=== PATIENT | male | born 1940 | race Caucasian/White ===

== ENCOUNTER 2017-04-02 09:20 | Emergency (ER) | payer OTHER ==
[~2017-04-02] VITALS: Ht 185.4 cm; Wt 111.2 kg
[2017-04-02] MEDS ORDERED: SODIUM CHLORIDE 0.9% 1,000 ML IV ONE (09:40)
[2017-04-02 09:54] LABS: HEMATOCRIT 49.2 % (39.2-51.8); HEMOGLOBIN 16.4 g/dL (13.7-18.0); WHITE BLOOD COUNT 10.4 x10^3/uL (3.4-10)
[2017-04-02] MEDS ORDERED: SODIUM CHLORIDE 0.9% 1,000ML IVBOLUS ONE (10:00)
[2017-04-02] MEDS ORDERED: FAMOTIDINE 20 MG/2 ML IVP ONE (10:00)
[2017-04-02] MEDS ORDERED: ONDANSETRON 2MG/ML, 2ML IVPush ONE (10:00)
[2017-04-02] MEDS ORDERED: HYDROmorphone 1 MG/ML, 1ML ONE ×3 (10:05→15:08)
[2017-04-02] MEDS ORDERED: ONDANSETRON 2MG/ML, 2ML ONE (10:05)
[2017-04-02] MEDS ORDERED: FAMOTIDINE 20 MG/2 ML ONE (10:05)
[2017-04-02 10:06] LABS: ASPARTATE AMINO TRANSFERASE 29 U/L (15-37); BLOOD UREA NITROGEN 19 mg/dL (7-18)
[2017-04-02] MEDS: HYDROmorphone 1 MG/ML, 1ML IVPush PRN ×2 (10:18→11:22)
[2017-04-02] MEDS ORDERED: OMNIPAQUE 350 MG/ML, 100ML BOTTLE ONE (11:08)
[2017-04-02] MEDS ORDERED: KETOROLAC 30 MG/1 ML IVPush ONE (12:00)
[2017-04-02] MEDS ORDERED: KETOROLAC 30 MG/1 ML ONE (12:23)
[2017-04-02 14:36] LABS: PATH.CAST-FLAG NOT PRESENT; SPERM-FLAG NOT PRESENT; SRC-FLAG NOT PRESENT; XTAL-FLAG NOT PRESENT; YLC-FLAG NOT PRESENT
[2017-04-02 15:02] VITALS: BP 151/74
== END 2017-04-02 15:06 | disposition home or self-care (01) ==
LOC: ED 11:28
DX: N20.1 Calculus of ureter (principal); N13.2 Hydronephrosis with renal and ureteral calculous obstruction; I10 Essential (primary) hypertension; F32.9 Major depressive disorder, single episode, unspecified
CPT/HCPCS: 36415; 74177; 80053; 81001; 83690; 85025; 96361; 96374; 96375; 96376; 99285; J1170; J1885; J2405; J7030; Q9967; S0028

== ENCOUNTER → 2018-02-11 | Outpatient (CLI) | payer MEDICARE | END | disposition home or self-care (01) | LOC: CFH 10:13 | PROVIDERS: ATTEND Family Medicine | DX: M41.85 Other forms of scoliosis, thoracolumbar region (principal); R06.02 Shortness of breath | CPT/HCPCS: 71046 ==